=== PATIENT | female | born 1940 | race Caucasian/White ===

== ENCOUNTER 2018-11-20 12:49 | Observation (INO) | payer OTHER ==
[~2018-11-20] VITALS: Ht 165.1 cm; Wt 73.7 kg
[2018-11-20 13:42] LABS: BASOPHIL % 0.5 % (0-2); PLATELET COUNT 368 x10^3mcL (130-400); RED CELL DISTRIBUTION WIDTH 13.2 % (11.5-14.5)
[2018-11-20 13:58] LABS: CALCIUM 9.1 mg/dL (8.5-10.1); CARBON DIOXIDE 27.3 mmol/L (21-32); CHLORIDE SERUM 101 mmol/L (98-107); CREATININE SERUM 0.8 mg/dL (0.6-1.0); GLUCOSE SERUM 165 mg/dL (74-106); POTASSIUM SERUM 4.2 mmol/L (3.5-5.1); SODIUM SERUM 138 mmol/L (136-145)
[2018-11-20 14:05] LABS: ALKALINE PHOSPHATASE 86 U/L (46-116); ALT/SGPT 22 U/L (14-59); AMYLASE 26 U/L (25-115); AST/SGOT 12 U/L (15-37); BILIRUBIN TOTAL 0.49 mg/dL (0.20-1.00); CHOLESTEROL 240 mg/dL (<200); HDL CHOLESTEROL 95 mg/dL (40-60); LIPASE 101 IU/L (73-393); MAGNESIUM 1.5 mg/dL (1.8-2.4); T4(THYROXINE) 6.8 ug/dL (4.7-13.3); TOTAL PROTEIN, SERUM 7.7 g/dL (6.4-8.2)
[2018-11-20 14:54] LABS: microscopic required? YES; urine erythrocyte NEGATIVE (NEGATIVE)
[2018-11-20] MEDS ORDERED: METFORMIN500 M1 PO (15:06)
[2018-11-20] MEDS ORDERED: METFORMIN HYDR500 M1 PO (15:07)
[2018-11-20 15:11] LABS: AMPHETAMINE QUAL UR NONE DETECTED (See below)
[2018-11-20] MEDS ORDERED: LEVEMIR FLEX100 U/M1 SQ (15:16)
[2018-11-20] MEDS ORDERED: TRULICITY0.75 MG/0. (15:18)
[2018-11-20] MEDS ORDERED: ZOLOFT50 MG PO (15:19)
[2018-11-20] MEDS ORDERED: ASPIRIN CHILDRE81 MG PO (15:19)
[2018-11-20 17:00] LABS: CHOLESTEROL/HDL RATIO 2.6
[2018-11-20 17:33] VITALS: BP 177/74
[2018-11-20 17:46] VITALS: Ht 165.1 cm; Wt 73.7 kg
[2018-11-20 18:14] VITALS: BP 155/46
[2018-11-20 20:12] VITALS: BP 143/54
[2018-11-21 05:18] VITALS: BP 150/69
[2018-11-21 09:03] VITALS: BP 150/52
[2018-11-21 11:50] VITALS: BP 156/68
[2018-11-21 15:56] VITALS: BP 156/68
== END 2018-11-21 17:40 | disposition home or self-care (01) | DRG 69 ==
LOC: ED 12:49 → DU 16:05
PROVIDERS: Emergency Medicine; ADMIT Internal Medicine
DX: G45.9 Transient cerebral ischemic attack, unspecified (principal); E11.9 Type 2 diabetes mellitus without complications; I10 Essential (primary) hypertension; E78.5 Hyperlipidemia, unspecified; Z86.73 Personal history of transient ischemic attack (TIA), and cerebral infarction without residual deficits; Z79.84 Long term (current) use of oral hypoglycemic drugs
CPT/HCPCS: 82962; 83880; G0378; J0696; J7030; J7050; Q0092

== ENCOUNTER 2020-08-18 11:58 | Emergency (ER) | payer OTHER ==
[~2020-08-18] VITALS: Ht 165.1 cm; Wt 75.7 kg
[~2020-08-18 11:58] MED LIST: ASPIRIN CHILDRE81 MG PO; LEVEMIR FLEX100 U/M1 SQ; METFORMIN HYDR500 M1 PO; METFORMIN500 M1 PO; TRULICITY0.75 MG/0.; ZOLOFT50 MG PO
[2020-08-18 12:22] VITALS: BP 138/46; Ht 165.1 cm; Wt 75.7 kg
== END 2020-08-18 14:14 | disposition home or self-care (01) ==
LOC: ED 11:58
DX: S32.592A Other specified fracture of left pubis, initial encounter for closed fracture (principal); S49.92XA Unspecified injury of left shoulder and upper arm, initial encounter; I10 Essential (primary) hypertension; E11.9 Type 2 diabetes mellitus without complications; Z86.73 Personal history of transient ischemic attack (TIA), and cerebral infarction without residual deficits; W18.39XA Other fall on same level, initial encounter; Y93.89 Activity, other specified; Y92.89 Other specified places as the place of occurrence of the external cause; Y99.8 Other external cause status

== ENCOUNTER 2020-10-08 06:04 | Day surgery (SDC) | payer OTHER ==
--- NOTE | 2020-10-04 17:02 | NUR ---
CXR, CBC RESULT COPY GIVEN TO ANESTHESIA TO REVIEW, DR PULLIAM REVIEWED RESULT AND FINDINGS AND OK'D PATIENT TO PROCEED WITH SURGERY.
[~2020-10-08] VITALS: Ht 165.1 cm; Wt 72.6 kg
[~2020-10-08 06:04] MED LIST changes: +ACIDOPHILUS1 EAC1 PO; +FER300 PO; +LEVAQUIN500 M1 PO
[2020-10-08 06:33] VITALS: BP 158/64
[2020-10-08 13:14] VITALS: BP 144/68
== END 2020-10-08 12:00 | disposition home or self-care (01) ==
LOC: DS 06:04 → OR 07:30 → DS 07:30
PROVIDERS: ATTEND Urology
DX: N20.1 Calculus of ureter (principal); I10 Essential (primary) hypertension; E11.9 Type 2 diabetes mellitus without complications; D64.9 Anemia, unspecified; Z90.710 Acquired absence of both cervix and uterus; Z88.0 Allergy status to penicillin; Z93.6 Other artificial openings of urinary tract status; Z79.899 Other long term (current) drug therapy
CPT/HCPCS: C1758; C1769; C2625; J0696; J3010; Q9967